=== PATIENT | male | born 1960 | race Caucasian/White ===

== ENCOUNTER 2016-08-06 11:03 | Emergency (ER) | payer OTHER ==
[2016-08-06 11:28] LABS: % IMMATURE GRANULYOCYTES 0.8 % (0.0-1.1); ABSOLUTE IMMATURE GRANULOCYTES 0.06 10^3/uL (0.00-0.10); ADD DIFF? NO; ADD MORPH? NO; ADD SCAN? NO; ATYPICAL LYMPHOCYTE FLAG 10 (0-99); FRAGMENT RBC FLAG 0 (0-99); HEMOGLOBIN 15.9 g/dL (13.7-17.5); LEFT SHIFT FLG 0 (0-99); LIPEMIA HEMOLYSIS FLAG 90 (0-99); MEAN CELL HEMOGLOBIN 32.6 pg (27.9-34.1); MEAN CELL HEMOGLOBIN CONCENTR. 35.3 g/dL (32.4-36.7); MEAN CELL VOLUME 92.4 fL (81.5-99.8); MEAN PLATELET VOLUME 10.7 fL (8.7-11.7); PLATELET CLUMPS FLAG 20 (0-99); PLATELET COUNT 200 10^3/uL (150-400); RED BLOOD CELL COUNT 4.87 10^6/uL (4.40-6.38); RED CELL DISTRIBUTION WIDTH 13.1 % (11.5-15.2)
--- NOTE | 2016-08-06 11:29 | EDPHY ---
H & P Stated Complaint: Sz with hx, post-ictal on EMS arrival, now AxO4 Time Seen by Provider: 08/06/16 11:08 HPI/ROS: CHIEF COMPLAINT: Recurrent seizure HISTORY OF PRESENT ILLNESS: The patient presents to the ED after a recurrent seizure. The patient does have a history of seizure disorder and is currently on Lamictal. He reports he has been compliant with this medication. The patient has been hospitalized at our institution for seizures in the past. There is a history of possible alcohol dependence. The patient does report that he continues to have a few drinks every now and then. The patient reports he last drink several days ago. The patient denies history of alcohol withdrawal. The patient has been compliant with his Lamictal. The patient did sustain an abrasion to his nose. He denies incontinence. He has no complaints of headache, neck pain, acute low back pain or focal neurologic symptoms. REVIEW OF SYSTEMS: A comprehensive 10 point review of systems is otherwise negative aside from elements mentioned in the history of present illness. Source: Patient Exam Limitations: No limitations - Personal History Current Tetanus/Diphtheria Vaccine: Yes Current Tetanus Diphtheria and Acellular Pertussis (TDAP): Yes Tetanus Vaccine Date: 2010 - Medical/Surgical History Hx Asthma: No Hx Chronic Respiratory Disease: No Hx Diabetes: No Hx Cardiac Disease: No Hx Renal Disease: No Hx Cirrhosis: No Hx Alcoholism: Yes Hx HIV/AIDS: No Hx Splenectomy or Spleen Trauma: No Other PMH: Seizure disorder - Social History Smoking Status: Current every day smoker - Physical Exam Exam: General Appearance: Alert, no distress Head: Normocephalic atraumatic, small abrasion to tip of nose Neck: No midline neck tenderness, normal range of motion, cleared via nexus criteria Eyes: Pupils equal and round no pallor or injection ENT, Mouth: Mucous membranes moist Respiratory: There are no retractions, lungs are clear to auscultation Cardiovascular: Regular rate and rhythm Gastrointestinal: Abdomen is soft and nontender, no masses, bowel sounds normal Neurological: A&O, normal motor function, normal sensory exam, normal cranial nerves Skin: Warm and dry, no rashes Musculoskeletal: Neck is supple nontender Extremities: symmetrical, full range of motion Constitutional: Initial Vital Signs Temperature (C) 37.4 C 08/06/16 11:09 Heart Rate 115 H 08/06/16 11:09 Respiratory Rate 14 08/06/16 11:09 Blood Pressure 160/99 H 08/06/16 11:09 O2 Sat (%) 94 08/06/16 11:09 O2 Delivery Mode Room Air Allergies/Adverse Reactions: No Known Allergies Allergy (Verified 08/06/16 11:08) Home Medications: Medication Instructions Recorded lamoTRIgine [LamICTAL 100 MG (*)] 100 mg PO BID #60 tab 04/13/16 Medical Decision Making ED Course/Re-evaluation: The patient was observed in the emergency department with no evidence of a recurrent seizure. He is neurologically intact. He has a superficial abrasion to his nose without additional traumatic injury. I did evaluate the patient several times over a 1 hour period. The patient did take his regular oral dose of Lamictal. The patient will be discharged home at this point time. 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 The patient will follow up with his regular neurologist Dr. Valentin for a recheck. - Data Points Laboratory Results: Laboratory Results 08/06/16 11:10 08/06/16 11:10 08/06/16 11:10 WBC 7.33 10^3/uL (3.80-9.50) RBC 4.87 10^6/uL (4.40-6.38) Hgb 15.9 g/dL (13.7-17.5) Hct 45.0 % (40.0-51.0) MCV 92.4 fL (81.5-99.8) MCH 32.6 pg (27.9-34.1) MCHC 35.3 g/dL (32.4-36.7) RDW 13.1 % (11.5-15.2) Plt Count 200 10^3/uL (150-400) MPV 10.7 fL (8.7-11.7) Neut % (Auto) 52.4 % (39.3-74.2) Lymph % (Auto) 37.0 % (15.0-45.0) [place] % (Auto) 8.0 % (4.5-13.0) Eos % (Auto) 1.0 % (0.6-7.6) Baso % (Auto) 0.8 % (0.3-1.7) Nucleat RBC Rel Count 0.0 % (0.0-0.2) Absolute Neuts (auto) 3.84 10^3/uL (1.70-6.50) Absolute Lymphs (auto) 2.71 10^3/uL (1.00-3.00) Absolute Monos (auto) 0.59 10^3/uL (0.30-0.80) Absolute Eos (auto) 0.07 10^3/uL (0.03-0.40) Absolute Basos (auto) 0.06 10^3/uL (0.02-0.10) Absolute Nucleated RBC 0.00 10^3/uL (0-0.01) Immature Gran % 0.8 % (0.0-1.1) Immature Gran # 0.06 10^3/uL (0.00-0.10) Sodium 142 mEq/L (134-144) Potassium 4.6 mEq/L (3.5-5.2) Chloride 107 mEq/L (97-110) Carbon Dioxide 25 mEq/l (22-31) Anion Gap 10 mEq/L (8-16) BUN 10 mg/dL (7-23) Creatinine 0.8 mg/dL (0.7-1.3) Estimated GFR > 60 Glucose 124 H mg/dL (70-100) Calcium 8.8 mg/dL (8.5-10.4) Departure - Departure Disposition: Home, Routine, Self-Care Clinical Impression: Seizure disorder Condition: Good Instructions: Recurrent Seizures in Adults (ED) Additional Instructions: 1. No driving, dangerous activities such as riding a ski lift, swimming in a pool or other behavior that could put you or someone else at risk in the event of a recurrent seizure. You will need to be cleared by a neurologist to resume these activities. 2. Please return to the ED for recurrent seizure, headache, numbness, weakness, altered mental status or other concerns. 3. Please follow up with neurologist you have been referred to this week to schedule a follow-up appointment. Referrals: NONE *PRIMARY CARE P,. [Primary Care Provider] - As per Instructions Rashad Valentin MD [Medical Doctor] - As per Instructions
[2016-08-06 11:37] LABS: ANION GAP 10 mEq/L (8-16); CALCIUM 8.8 mg/dL (8.5-10.4); CARBON DIOXIDE 25 mEq/l (22-31); CHLORIDE 107 mEq/L (97-110); CREATININE 0.8 mg/dL (0.7-1.3); GLOMERULAR FILTRATION RATE > 60; GLUCOSE 124 mg/dL (70-100); POTASSIUM 4.6 mEq/L (3.5-5.2); SODIUM 142 mEq/L (134-144)
[2016-08-06 12:18] VITALS: BP 117/76; PULSE 109; RESP 17; TEMP 98.1; O2SAT 95
== END 2016-08-06 12:17 | disposition home or self-care (01) ==
LOC: EDUNIT#
DX: G40.909 Epilepsy, unspecified, not intractable, without status epilepticus (principal); F17.200 Nicotine dependence, unspecified, uncomplicated

== ENCOUNTER 2016-08-06 19:38 | Emergency (ER) | payer OTHER ==
--- NOTE | 2016-08-06 19:43 | EDPHY ---
H & P Time Seen by Provider: 08/06/16 19:42 HPI/ROS: CHIEF COMPLAINT: 2 Seizures today. HISTORY OF PRESENT ILLNESS: The patient is a 56-year-old male with a known seizure disorder who presents after 2 seizures today. The second seizure was witnessed by his who reports that he fell and hit his head on the sheth of a car. Immediately after he fell, she ran inside and called 911. He was confused afterwards, similar to his previous seizures. He was seen in the ER after his first seizure today. He has been mostly compliant with his Lamictal, however he takes 100 mg twice daily when he is supposed to take 100 mg three times daily. He took his dose an hour later today than he usually does. He reports he normally has a seizure every month to every month and a half. No headache, neck pain, vomiting, diarrhea, abdominal pain, chest pain, shortness of breath, or other complaints. He has been seen in the ER multiple times previously for seizures. REVIEW OF SYSTEMS: A complete 10-point review of systems was performed and is negative except for those items mentioned in the HPI. Past Medical/Surgical History: Seizure disorder. Social History: Smoker, social alcohol use. Smoking Status: Current every day smoker Physical Exam: General Appearance: Alert, no distress Eyes: Pupils equal and round, no conjunctival pallor or injection ENT, Mouth: Nasal abrasion, swelling over the right forehead, Mucous membranes moist Neck: Normal inspection, no tenderness, range of motion without pain Respiratory: Lungs are clear to auscultation Cardiovascular: Regular rate and rhythm Gastrointestinal: Abdomen is soft and non- tender Neurological: Alert, oriented x3, cranial nerves II through XII intact, motor 5/ 5, sensory intact to light touch, normal gait Skin: Warm and dry, no rash Extremities: Nontender, no pedal edema Psychiatric: Mood and affect normal Constitutional: Initial Vital Signs Temperature (C) 37.0 C 08/06/16 19:42 Heart Rate 105 H 08/06/16 19:42 Respiratory Rate 18 08/06/16 19:42 Blood Pressure 159/98 H 08/06/16 19:42 O2 Sat (%) 96 08/06/16 19:42 O2 Delivery Mode Room Air Allergies/Adverse Reactions: No Known Allergies Allergy (Verified 08/06/16 11:08) Home Medications: Medication Instructions Recorded lamoTRIgine [LamICTAL 100 MG (*)] 100 mg PO BID #60 tab 04/13/16 Medical Decision Making ED Course/Re-evaluation: This patient presents after a recurrent seizure. He has been taking Lamictal twice daily, but was previously told to take Lamictal 3 times because recurrent seizures. Laboratory tests from earlier today reviewed and are essentially normal. I do feel that he requires admission for further evaluation. Instead, should increase his Lamictal to 100 mg 3 times daily as previously suggested. He is reluctant to do this because Lamictal makes him so drowsy. Instead, he will take Lamictal 100 mg in the morning and 150 mg at night. He will follow with Dr. Valentin in the office. Differential Diagnosis: Differential diagnosis includes though it is not limited to status epilepticus, hypoglycemia, intracranial hemorrhage, CVA, benzodiazepine withdrawal, alcohol withdrawal, epilepsy. Departure - Departure Disposition: Home, Routine, Self-Care Clinical Impression: Seizure Condition: Good Instructions: Recurrent Seizures in Adults (ED) Additional Instructions: Take your Lamictal three times daily. Call Dr. Valentin, neurology, tomorrow to set up a follow up appointment. Return to the emergency department if you experience serious worsening of condition. Referrals: Rashad Valentin MD [Medical Doctor] - As per Instructions Report Scribed for: Makenna Juarez Report Scribed by: Rodrigo Teixeira Date of Report: 08/06/16 Time of Report: 19:55 Physician Review and Approval Statement: 08/06/16 19:55 Portions of this note were transcribed by a biomedical equipment tech. I personally performed a history, physical exam, medical decision making, and confirmed accuracy of information the transcribed note.
[2016-08-06 19:46] VITALS: TEMP 98.6
[2016-08-06 21:18] VITALS: BP 154/91; PULSE 106; RESP 20; O2SAT 97
== END 2016-08-06 21:24 | disposition home or self-care (01) ==
LOC: EDUNIT#
DX: G40.909 Epilepsy, unspecified, not intractable, without status epilepticus (principal); F17.200 Nicotine dependence, unspecified, uncomplicated

== ENCOUNTER 2016-09-15 09:16 | Emergency (ER) | payer OTHER ==
--- NOTE | 2016-09-15 09:35 | EDPHY ---
H & P Stated Complaint: HAD A SEIZURE A FEW HOURS AGO Time Seen by Provider: 09/15/16 09:34 - Personal History Current Tetanus/Diphtheria Vaccine: Yes Current Tetanus Diphtheria and Acellular Pertussis (TDAP): Yes Tetanus Vaccine Date: 2010 - Medical/Surgical History Hx Asthma: No Hx Chronic Respiratory Disease: No Hx Diabetes: No Hx Cardiac Disease: No Hx Renal Disease: No Hx Cirrhosis: No Hx Alcoholism: Yes Hx HIV/AIDS: No Hx Splenectomy or Spleen Trauma: No Other PMH: Seizure disorder, PRE-DIABETIC, ETOH, SCOLIOSIS, DDD - Social History Smoking Status: Current every day smoker Constitutional: Initial Vital Signs Temperature (C) 36.3 C 09/15/16 09:19 Heart Rate 120 H 09/15/16 09:19 Respiratory Rate 20 09/15/16 09:19 Blood Pressure 143/118 H 09/15/16 09:19 O2 Sat (%) 95 09/15/16 09:19 O2 Delivery Mode Room Air Allergies/Adverse Reactions: No Known Allergies Allergy (Verified 08/06/16 11:08) Home Medications: Medication Instructions Recorded lamoTRIgine [LamICTAL 100 MG (*)] 100 mg PO BID #60 tab 04/13/16 Medical Decision Making ED Course/Re-evaluation: CHIEF COMPLAINT: "I had a seizure," left shoulder pain HISTORY OF PRESENT ILLNESS: The patient is a 56 y/o male, with a history of alcohol abuse and seizure disorder, complaining of a seizure and left shoulder pain this morning. He's been here multiple times for seizures in the last few months. He reports he was drinking heavily for the last 7 days, then "toned it down pretty hard" and his last alcohol intake was whiskey and beer last night. He denies history of alcohol withdrawal seizures. He states, "sometimes when I' m drinking I forget to take my medications." He thinks he missed his dose last night and didn't take a dose of his Lamictal this morning. He complains of new left shoulder pain, but is able to move his arm normally. He denies other injuries. REVIEW OF SYSTEMS: A 10 point review of systems was performed and is negative with the exception of the elements mentioned in the history of present illness. PHYSICAL EXAM: HR, BP, O2 Sat, RR. Temp noted General Appearance: Alert, well hydrated, appropriate, and non-toxic appearing. Head: Atraumatic without scalp tenderness or obvious injury Eyes: Pupils equal, round, reactive to light and accommodation, EOMI, no trauma , no injection. Ears: Clear bilaterally, no perforation, normal landmarks Nose: Atraumatic, no rhinorrhea, clear. Neck: Supple, nontender, no lymphadenopathy. Respiratory: No retractions, no distress, no wheezes, and no accessory muscle use. Lungs are clear to auscultation bilaterally. Cardiovascular: Regular rate and rhythm, no murmurs, rubs, or gallops. Good capillary refill all extremities. Gastrointestinal: Abdomen is soft, nontender, non-distended, no masses, no rebound, no guarding, no peritoneal signs. Musculoskeletal: Normal active ROM of all extremities, atraumatic. Neurological: Alert, appropriate, and interactive. The patient has normal DTRs and non-focal cranial nerves, motor, sensory, and cerebellar exam. Skin: No rashes, good turgor, no nodules on palpation. Past medical history: scoliosis, degenerative disc disease, sciatica Past surgical history: denies Family history: noncontributory Social history: heavy alcohol use, smoker Prior medical records reviewed including ED visit 08/06/16 for a seizure. DIAGNOSTICS/PROCEDURES/CRITICAL CARE TIME: Study: Left shoulder x-ray Indication: Pain, possible trauma during seizure Results: Left shoulder x-ray was obtained. The results of the study are old glenoid fracture. The study was read by the radiologist, Dr. Michele. I viewed the images myself on the PACS system. DIFFERENTIAL DIAGNOSIS: The differential diagnosis for the patient's seizure included but was not limited to electrolyte abnormality, alcohol withdrawal, medication noncompliance, head injury, DATA ANALYST REPORT WRITER structural abnormality, and break through seizure. MEDICAL DECISION MAKING: This is a 56 y/o male with a history of alcoholism and seizure disorder presenting to the ED after a reported seizure complaining of left shoulder pain. He thinks he missed the last two doses of his Lamictal. Exam is unremarkable. Plan for shoulder x-ray and dose of Lamictal here. 1120: X-ray reveals old glenoid fracture per Dr. Michele. Patient will be discharged in a sleep with directions to take his seizure medications regularly. He agrees with plan. Return precautions given. Departure - Departure Disposition: Home, Routine, Self-Care Clinical Impression: Seizure, Fracture of glenoid process of left scapula with routine healing Condition: Good Instructions: Recurrent Seizures in Adults (ED) Additional Instructions: Take your seizure medications as prescribed. Follow up with your neurologist this week. Return to the ED for any worsening of condition. Referrals: NONE *PRIMARY CARE P,. [Primary Care Provider] - As per Instructions Mikel Hernandez DO [Doctor of Osteopathy] - As per Instructions Report Scribed for: Isaiah Martinez Report Scribed by: Alexandrea Harris Date of Report: 09/15/16 Time of Report: 10:06
[2016-09-15 11:46] VITALS: BP 123/72; PULSE 97; RESP 18; TEMP 98.4; O2SAT 93
== END 2016-09-15 11:46 | disposition home or self-care (01) ==
DX: G40.909 Epilepsy, unspecified, not intractable, without status epilepticus (principal); F17.200 Nicotine dependence, unspecified, uncomplicated; S42.142D Displaced fracture of glenoid cavity of scapula, left shoulder, subsequent encounter for fracture with routine healing; X58.XXXD Exposure to other specified factors, subsequent encounter
CPT/HCPCS: 73030; 99283; A4565

== ENCOUNTER → 2016-10-30 | Outpatient (CLI) | payer OTHER ==
--- NOTE | 2016-10-30 16:57 | CPEEG ---
[f rep st] ELECTROENCEPHALOGRAM 4-HOUR VIDEO EEG DATE OF STUDY: 10/30/2016 DATE OF INTERPRETATION: 10/30/2016. INTERPRETATION: This 4-hour video EEG recording is abnormal due to the presence of independent pote ntially epileptogenic abnormalities over the bitemporal head regions, maximal right. These findings would be consistent with a focal seizure disorder. During the video EEG monitoring session, the tamara suazo did not have any clinical events. REPORT: This 4-hour video EEG contains 10 Hz alpha activity to the posterior head regions. There w as no abnormal activation at rest, during photic stimulation, or hyperventilation. The patient paula me drowsy and fell into sustained sleep during the study. During drowsiness and sleep, there was ac tivation of frequent right frontotemporal spikes and sharp waves. In addition, there was activation of occasional, independent left temporal spikes and sharp waves. There were no clinical events rec orded during the video EEG monitoring session. /[id number]/MODL
== END ==
LOC: FCPNEURO 08:36
PROVIDERS: ATTEND Psychiatry & Neurology Neurology
DX: R94.01 Abnormal electroencephalogram [EEG] (principal); R56.9 Unspecified convulsions

== ENCOUNTER 2017-10-20 01:21 | Emergency (ER) | payer OTHER ==
--- NOTE | 2017-10-20 02:22 | EDPHY ---
H & P Stated Complaint: HEACY ETOH TONIGHT. FOUND SLEEPING ON THE STREET Source: Patient, EMS Exam Limitations: Intoxication - Personal History Current Tetanus/Diphtheria Vaccine: Yes Current Tetanus Diphtheria and Acellular Pertussis (TDAP): Yes Tetanus Vaccine Date: 2010 - Medical/Surgical History Hx Asthma: No Hx Chronic Respiratory Disease: No Hx Diabetes: No Hx Cardiac Disease: No Hx Renal Disease: No Hx Cirrhosis: No Hx Alcoholism: Yes Hx HIV/AIDS: No Hx Splenectomy or Spleen Trauma: No Other PMH: Seizure disorder, PRE-DIABETIC, ETOH, SCOLIOSIS, DDD - Social History Smoking Status: Current every day smoker Time Seen by Provider: 10/20/17 01:30 HPI/ROS: CHIEF COMPLAINT: Alcohol intoxication HISTORY OF PRESENT ILLNESS: The patient is homeless man. Patient was found by bystanders to be severely intoxicated and therefore they called EMS system. The patient fell off of a park bench and was noted to have epistaxis as well as an abrasion to his right forehead. Patient denies coingestion, patient denies suicidal or homicidal behavior. REVIEW OF SYSTEMS: Constitutional: No fever, no chills. Eyes:No visual changes. ENT: No sore throat. Respiratory: No cough, no shortness of breath. Cardiac: No chest pain. Gastrointestinal: No abdominal pain, vomiting or diarrhea. Genitourinary: No hematuria. Musculoskeletal: No back pain. Skin: No rashes. Neurological: No headache. PAST MEDICAL HISTORY: Seizure disorder on lamotrigine PAST SURGICAL HISTORY: None SOCIAL HISTORY: Homelessness, alcohol abuse PHYSICAL EXAM: General Appearance: Alert, obviously intoxicated, nontoxic Head: Right forehead with abrasion without any overlying hematoma Eyes: Pupils equal, round, reactive to light, no injection. Ears: Clear bilaterally, no perforation, normal landmarks Nose: Atraumatic, no rhinorrhea, clear. Throat: mucus membranes moist. Neck: Supple, non-tender, no lymphadenopathy. Respiratory: No retractions, no distress, no wheezes, and no accessory muscle use. Lungs are clear to auscultation bilaterally. Cardiovascular: Regular rate and rhythm, no murmurs, rubs, or gallops. Gastrointestinal: Abdomen is soft, non-tender, non-distended Musculoskeletal: Normal active ROM of all extremities, atraumatic. Neurological: Alert, appropriate, and interactive. Moves all extremities equally. Skin: No rashes, good turgor, no nodules on palpation. MEDICAL DECISION MAKING: I serially examined this patient since the patient's arrival here in the emergency department. The patient continues to become more and more sober with each examination. I serially questioned the patient and the patient's story given initially has not changed. The patient still denies any trauma, any head injury, and any illicit drug use. At this point, the patient is walking the department freely and is clinically sober. We're discharging the patient to the [facility] in stable condition. (Kaylie Reilly) Constitutional: Initial Vital Signs Temperature (C) 36.0 C 10/20/17 01:34 Heart Rate 79 10/20/17 01:34 Respiratory Rate 16 10/20/17 01:34 Blood Pressure 116/69 10/20/17 01:34 O2 Sat (%) 89 L 10/20/17 01:34 O2 Delivery Mode Room Air O2 (L/minute) 15 Allergies/Adverse Reactions: No Known Allergies Allergy (Verified 10/20/17 01:36) Home Medications: Medication Instructions Recorded lamoTRIgine [LamICTAL 100 MG (*)] 100 mg PO BID #60 tab 04/13/16 Medical Decision Making - Diagnostics Imaging Results: CT of head is unremarkable for any intracranial hemorrhage, discussed with the radiologist component prep operator. (Kaylie Reilly) Differential Diagnosis: 700: The patient is signed out to me at change of shift by Dr. Reilly. Pt is stable. The patient is awaiting the tablets a cooper his alcohol. (Angela Blum) 55-year-old male with history of homelessness, alcohol abuse, seizure disorder versus alcohol withdrawal seizures presents brought in by ambulance for alcohol intoxication with fall off of park bench. On exam, clearly intoxicated with abrasion to forehead. There is no active hemostasis though this was reported in the field. Differential diagnosis includes alcohol intoxication, polysubstance abuse, closed head injury. Plan for CT scan of head. The patient was monitored for several hours and became clinically more sober. CT scan of head was normal. (Kaylie Reilly) - Data Points Medications Given: Discontinued Medications Chlordiazepoxide (Librium 25 Mg Prepack#6) 1 btl TAKEHOME EDNOW ONE Stop: 10/20/17 06:19 Last Admin: 10/20/17 06:21 Dose: 1 btl Departure - Departure Disposition: Home, Routine, Self-Care Clinical Impression: Alcoholic intoxication, Forehead abrasion Condition: Good Instructions: Chlordiazepoxide/Clidinium (By mouth), Alcohol Intoxication (ED) Referrals: [facility] [Outside] - As per Instructions
[2017-10-20] MEDS ORDERED: CHLORDIAZEPOXIDE 25MG PREPK#6 BTL TAKEHOME ONE (06:18)
[2017-10-20 07:26] VITALS: BP 107/68
== END 2017-10-20 07:24 | disposition home or self-care (01) ==
LOC: EDUNIT#
DX: S00.81XA Abrasion of other part of head, initial encounter (principal); F10.129 Alcohol abuse with intoxication, unspecified; F17.200 Nicotine dependence, unspecified, uncomplicated; W18.39XA Other fall on same level, initial encounter; Y92.830 Public park as the place of occurrence of the external cause; Y99.8 Other external cause status; Y93.89 Activity, other specified